=== PATIENT | male | born 1980 | race Caucasian/White ===

== ENCOUNTER 2017-05-08 07:49 | Emergency (ER) | payer SELFPAY ==
[2017-05-08] MEDS ORDERED: diPHENhydraMINE IV* 50 MG/ML 1 ml VIAL (BENADRYL) IM ONE (07:56)
[2017-05-08] MEDS ORDERED: Haloperidol INJ IV/IM* 5 MG/ML AMP IM ONE (07:57)
[2017-05-08] MEDS ORDERED: LORazepam INJ* 2 MG/ML 1 ML VIAL IM ONE (07:57)
[2017-05-08] MEDS ORDERED: diPHENhydraMINE IV* 50 MG/ML 1 ml VIAL (BENADRYL) ONE (08:14)
[2017-05-08] MEDS ORDERED: LORazepam INJ* 2 MG/ML 1 ML VIAL ONE (08:14)
[2017-05-08] MEDS ORDERED: Haloperidol INJ IV/IM* 5 MG/ML AMP ONE (08:14)
[2017-05-08 09:03] LABS: Hematocrit 40 % (42-52); Hemoglobin 13.5 g/dl (14.0-18.0); Mean Corpuscular HGB Conc 33 g/dl (31-36); Mean Corpuscular Hemoglobin 30 pg (27-31); Mean Corpuscular Volume 89 fL (80-94); Mean Platelet Volume 8 um3 (7.4-10.4); Red Blood Count 4.54 10^6/ul (4.0-5.4); Red Cell Distribution Width 14 % (10.5-15); White Blood Count 6.8 10^3/ul (3.5-10.8)
[2017-05-08 09:21] LABS: ALT 11 U/L (7-52); AST 17 U/L (13-39); Albumin 4.2 g/dL (3.2-5.2); Alkaline Phosphatase 73 U/L (34-104); Anion Gap 4 mmol/L (2-11); BUN/Creatinine Ratio 10.1 (8-20); Blood Urea Nitrogen 10 mg/dL (6-24); CO2 Carbon Dioxide 31 mmol/L (22-32); Calcium 9.3 mg/dL (8.6-10.3); Chloride 105 mmol/L (101-111); Creatine Kinase 144 U/L (10-223); EGFR Non-African American 85.5 (>60); Globulin 2.6 g/dL (2-4); Glucose 88 mg/dL (70-100); Potassium 3.6 mmol/L (3.5-5.0); Sodium 140 mmol/L (133-145); Total Protein 6.8 g/dL (6.4-8.9)
[2017-05-08 09:35] LABS: Acetaminophen < 15 mcg/mL; Alcohol < 10 mg/dL (<10); Salicylate < 2.50 mg/dL (<30)
[2017-05-08 09:51] LABS: TSH (Thyroid Stimulating Horm) 1.01 mcIU/mL (0.34-5.60)
[2017-05-08 15:46] VITALS: BP 137/88
--- NOTE | 2017-05-08 20:24 | ED ---
Maribell Ahn Gabriel, scribed for Bhavana Alfaro MD on 05/08/17 at 0806 . Substance Abuse/Use - HPI Summary HPI Summary: This patient is a 36 year old M BIBA to [facility] after the police were called for the patient being uncooperative at a gas station while eating hotdogs. He was found with packets of empty Suboxone on his person. He refuses to answer any questions including his name and birthday. Patient is taunting the staff and will not answer a helpful manor. LEVEL 5 CAVEAT: HPI limited due to the patient being uncooperative. - History Of Current Complaint Stated Complaint: SUBSTANCE USE Hx Obtained From: EMS, Medical Records PMH/Surg Hx/FS Hx/Imm Hx - Social History Alcohol Use: None Substance Use Type: Reports: Other Smoking Status (MU): Heavy Every Day Tobacco Smoker - Additional Comments History Additional Comments: LEVEL 5 CAVEAT: Medical history limited due to the patient being uncooperative. Review of Systems - ROS Summary Review of Systems Summary: LEVEL 5 CAVEAT: ROS limited due to the patient being uncooperative. Negative: Fever All Other Systems Reviewed And Are Negative: No Physical Exam - Summary Physical Exam Summary: Physical Exam Findings Appearance: appears sleepy, no pain distress, Well-nourished Skin: Warm, color reflects adequate perfusion Head: Normal Head/Face Eyes: Conjunctiva clear ENT: Normal appearance Neck: Supple Respiratory: Lungs clear, Normal breath sounds, no respiratory distress Cardio: RRR, No murmur, pulses normal, brisk capillary refill Abdomen: soft, nontender Bowel sounds: present Musculoskeletal: Strength Intact/ ROM intact Neuro: Alert, muscle tone normal, ED: facial symmetry, speech normal, sensory/ motor intact Detailed Neuro Exam: A&Ox3, CN II-XII intact, Motor function 5/5, Sensations intact Psychological: Normal LEVEL 5 CAVEAT: PE limited due to the patient being uncooperative. Triage Information Reviewed: Yes Vital Signs On Initial Exam: Initial Vitals Temp Pulse Resp BP Pulse Ox 98.2 F 79 15 115/72 97 05/08/17 07:51 05/08/17 07:51 05/08/17 07:51 05/08/17 07:51 05/08/17 07:51 Vital Signs Reviewed: Yes Completion Of Physical Exam Limited Due To: Level 5 Diagnostics - Vital Signs Vital Signs Temp Pulse Resp BP Pulse Ox 05/08/17 15:30 58 11 137/88 99 05/08/17 15:00 11 140/82 05/08/17 14:30 14 05/08/17 14:00 14 107/68 05/08/17 13:30 15 131/85 05/08/17 13:00 14 129/87 05/08/17 12:30 10 113/62 05/08/17 12:00 75 15 107/75 100 05/08/17 11:30 69 14 103/73 98 05/08/17 11:00 72 14 109/78 100 05/08/17 10:30 70 15 119/83 100 05/08/17 10:00 68 13 118/87 100 05/08/17 09:30 77 16 117/79 97 05/08/17 09:04 79 15 97 05/08/17 07:51 98.2 F 79 15 115/72 97 - Laboratory Lab Results: Lab Results 05/08/17 05/08/17 05/08/17 Range/Units 08:45 08:45 08:45 WBC 6.8 (3.5-10.8) 10^3/ul RBC 4.54 (4.0-5.4) 10^6/ul Hgb 13.5 L (14.0-18.0) g/dl Hct 40 L (42-52) % MCV 89 (80-94) fL MCH 30 (27-31) pg MCHC 33 (31-36) g/dl RDW 14 (10.5-15) % Plt Count 243 (150-450) 10^3/ul MPV 8 (7.4-10.4) um3 Neut % (Auto) 44.5 (38-83) % Lymph % (Auto) 41.9 (25-47) % [place] % (Auto) 10.4 H (1-9) % Eos % (Auto) 2.2 (0-6) % Baso % (Auto) 1.0 (0-2) % Absolute Neuts (auto) 3.0 (1.5-7.7) 10^3/ul Absolute Lymphs (auto) 2.9 (1.0-4.8) 10^3/ul Absolute Monos (auto) 0.7 (0-0.8) 10^3/ul Absolute Eos (auto) 0.1 (0-0.6) 10^3/ul Absolute Basos (auto) 0.1 (0-0.2) 10^3/ul Absolute Nucleated RBC 0.01 10^3/ul Nucleated RBC % 0.1 Sodium 140 (133-145) mmol/L Potassium 3.6 (3.5-5.0) mmol/L Chloride 105 (101-111) mmol/L Carbon Dioxide 31 (22-32) mmol/L Anion Gap 4 (2-11) mmol/L BUN 10 (6-24) mg/dL Creatinine 0.99 (0.67-1.17) mg/dL Est GFR ( Amer) 110.0 (>60) Est GFR (Non-Af Amer) 85.5 (>60) BUN/Creatinine Ratio 10.1 (8-20) Glucose 88 (70-100) mg/dL Lactic Acid 1.2 (0.5-2.0) mmol/L Calcium 9.3 (8.6-10.3) mg/dL Total Bilirubin 0.30 (0.2-1.0) mg/dL AST 17 (13-39) U/L ALT 11 (7-52) U/L Alkaline Phosphatase 73 (34-104) U/L Total Creatine Kinase 144 (10-223) U/L Total Protein 6.8 (6.4-8.9) g/dL Albumin 4.2 (3.2-5.2) g/dL Globulin 2.6 (2-4) g/dL Albumin/Globulin Ratio 1.6 (1-3) TSH 1.01 (0.34-5.60) mcIU/mL Salicylates < 2.50 (<30) mg/dL Acetaminophen < 15 mcg/mL Serum Alcohol < 10 (<10) mg/dL Result Diagrams: 05/08/17 08:45 05/08/17 08:45 Lab Statement: Any lab studies that have been ordered have been reviewed, and results considered in the medical decision making process. - EKG 0819 Cardiac Rate: NL EKG Rhythm: Sinus Rhythm - at 72 BPM EKG Interpretation: normal AV/IV CT, normal QCt, normal axis, NAC EKG Comparison: Other - no prior to compare Re-Evaluation - Re-Evaluation First Eval Re-Evaluation Time: 08:37 Change: Unchanged - Sedations meds were not given, the patient feel asleep and is cooperative for EKG. Second Eval Re-Evaluation Time: 12:14 Change: Improved - Patient is more alert answers questions but becomes argumentative and refuses to answer further questions. Course/Dx - Course Assessment/Plan: Test results with no significant abnormalities. Patient will be discharged and follow up from [facility]. The patient is agreeable with this plan. - Diagnoses Provider Diagnoses: Substance abuse Discharge - Discharge Plan Condition: Stable Disposition: HOME Patient Education Materials: Polysubstance Abuse (ED) Referrals: [facility] [Outside] No Primary Care Phys,NOPCP [Primary Care Provider] - Additional Instructions: Please try [facility] for follow up. You may also try the [facility] for follow up. Return to the ER if you have any new or worsening symptoms. The documentation as recorded by the Maribell juarez Gabriel accurately reflects the service I personally performed and the decisions made by , Bhavana Alfaro MD.
== END 2017-05-08 15:50 | disposition home or self-care (01) ==
LOC: ED 07:49
DX: F19.10 Other psychoactive substance abuse, uncomplicated (principal); F17.200 Nicotine dependence, unspecified, uncomplicated
CPT/HCPCS: 36415; 80053; 80320; 80329; 82550; 83605; 84443; 85025; 93005; 96372; 96374; 99283; G0480; J1200; J1630; J2060

== ENCOUNTER 2018-02-25 19:00 | Emergency (ER) | payer MEDICAID, OTHER ==
[2018-02-25 19:39] VITALS: BP 124/69
--- NOTE | 2018-02-25 19:54 | UC ---
Skin Complaint HPI - HPI Summary HPI Summary: Pt presents for evluation fo a lump on his throat. Pt states has been there for a "long time" pt states had it ultrasounded when was incarcerated - but doesn' tknow the result. Pt states is a pt at [facility] - has a referral for an ultrasound. Pt states he thinks it has gotten larger so wanted to get it checked. No difficulty with breathing. No difficulty with swallowing. no discomfort. No fever, chills. no cp, sob, abd pain. no n.v.d No other complaints Pt's medications reviewed this visit - History of Current Complaint Chief Complaint: UCGeneralIllness Stated Complaint: LUMP ON THROAT Hx Obtained From: Patient Onset/Duration: Gradual Onset, Lasting Weeks Pain Intensity: 4 - Allergy/Home Medications Allergies/Adverse Reactions: Allergies Allergy/AdvReac Type Severity Reaction Status Date / Time No Known Allergies Allergy Verified 02/25/18 19:39 Home Medications: Home Medications Buprenorphine/Naloxone SL TAB* [Suboxone 8-2 mg SL TAB*] 02/25/18 [History] Ibuprofen TAB* [Advil TAB*] 400 mg PO PRN 02/25/18 [History] Review of Systems Constitutional: Negative Skin: Other - neck growth All Other Systems Reviewed And Are Negative: Yes PMH/Surg Hx/FS Hx/Imm Hx Previously Healthy: Yes - Surgical History Surgical History: Yes Surgery Procedure, Year, and Place: SEPTOPLASTY, JAW REPAIR - Family History Known Family History: Positive: Other - non contributory - Social History Occupation: Employed Part-time Alcohol Use: None Substance Use Type: Marijuana Smoking Status (MU): Current Every Day Smoker Type: Cigarettes Amount Used/How Often: 1/2 PPD Physical Exam - Summary Physical Exam Summary: Vital Signs Reviewed: Yes A+Ox3, no distress Eyes: Conjunctiva Clear, JANUSZ, EOM intact and full ENT: Hearing grossly normal TM x 2 clear turbinates wnl mmmoist no exudate no intraoral edema uvula midline neck: supple pt with soft, cystic structure just left lateral midline - non tender, no red no tender c/w thyroglossal duct cyst Respiratory: Positive: No respiratory distress, No accessory muscle use Cardiovascular: skin color reflect adequate perfusion Musculoskeletal Exam: JETT x 4 without difficulty Neurological: Positive: Alert, ambulatory without difficulty Psychological: Positive: Normal Response To Family Skin: Positive: no rash, no ecchymosis Triage Information Reviewed: Yes Vital Signs: Initial Vital Signs Temp 99.1 F 02/25/18 19:31 Pulse 90 02/25/18 19:31 Resp 16 02/25/18 19:31 BP 124/69 02/25/18 19:31 Pulse Ox 99 02/25/18 19:31 Course/Dx - Course Course Of Treatment: pt presents for eval of apparent thyroglossal cyst. Pt states has had for a long time. concerned increased in size. no fever, chils. no resp or swallowing difficulty. Pt has and ultrasound referral from [facility]. Recommend keep appt. [facility] - Diagnoses Provider Diagnoses: cyst Discharge - Sign-Out/Discharge Documenting (check all that apply): Patient Departure All imaging exams completed and their final reports reviewed: No Studies - Discharge Plan Condition: Stable Disposition: HOME Patient Education Materials: Cyst (ED) Referrals: [facility] [Outside] [facility] Medical,. [[employer], APPLICATION, OTHER] - Additional Instructions: The doctor that evaluated you thinks you have a cyst. It is recommended you alternate ibuprofen (advil, Motrin) 600mg and tylenol every 3hours as needed for pain. Take with food Okay to apply warm soaks to your neck It is recommended you get the ultrasound ordered by Dr. Merida - you can call the hospital at [phone] to schedule this appointment You [facility] also [facility] - call on Tuesday for an appointment. This office can help with your testing and ongoing care treatment plan - Billing Disposition and Condition Condition: STABLE Disposition: Home
[2018-02-25] MEDS ORDERED: Ibuprofen TAB* 400 MG PO ONE (20:07)
== END 2018-02-25 20:38 | disposition home or self-care (01) ==
LOC: UCEAST 19:00
DX: Q89.2 Congenital malformations of other endocrine glands (principal); F17.210 Nicotine dependence, cigarettes, uncomplicated
CPT/HCPCS: 99211; A9270-GY; G0463

== ENCOUNTER 2018-10-17 18:34 | Emergency (ER) | payer OTHER ==
--- NOTE | 2018-10-17 19:11 | ED ---
Substance Abuse/Use - HPI Summary HPI Summary: Pt is a 37 y/o F presenting to the ED brought in by EMS and the [place] [employer] for substance abuse. The pt is alert and oriented at bedside, and states that he was trying to jump out of the way of a car that was too close to the shoulder, and the police stopped him. He also states that they manufactured probable cause to bring him in today. He denies any pain or SI/HI , and refused to answer whether or not he used any drugs. Per the [place] [employer], he was found with Suboxone, Alprazolam, and Gabapentin on him. - History Of Current Complaint Chief Complaint: EDSubstanceAbuse Stated Complaint: 9, ETOH PER POLICE Time Seen by Provider: 10/17/18 18:56 Hx Obtained From: Patient, Other: - [employer] [employer] Ingestion History: Type/Name Of Drug - gabapentin, alprazolam, suboxone, Amount Ingested - unknown, Approximate Time Of Ingestion - unknown Overdose Characteristics: Oral Timing Of Abuse: Binge Use Severity Initially: Moderate Severity Currently: Moderate Character: Lethargic Aggravating Factor(s): Nothing Alleviating Factor(s): Nothing - Allergies/Home Medications Allergies/Adverse Reactions: Allergies Allergy/AdvReac Type Severity Reaction Status Date / Time No Known Allergies Allergy Verified 02/25/18 19:39 Home Medications: Home Medications Buprenorphine HCl/Naloxone HCl [Buprenorphn-Naloxn 2-0.5 mg Sl] 1 each SL BID [History Confirmed 10/17/18] Gabapentin CAP(*) [Neurontin 400 mg CAP(*)] 800 mg PO BID 10/17/18 [History Confirmed 10/17/18] Varenicline (NF) [Chantix 1 MG TAB (NF)] 1 mg PO BID 10/17/18 [History Confirmed 10/17/18] PMH/Surg Hx/FS Hx/Imm Hx Previously Healthy: Yes Endocrine/Hematology History: Denies: Hx Diabetes Cardiovascular History: Denies: Hx Hypertension - Surgical History Surgery Procedure, Year, and Place: SEPTOPLASTY, JAW REPAIR Infectious Disease History: No Infectious Disease History: Denies: Traveled Outside the [place] in Last 30 Days - Family History Known Family History: Positive: Unknown - pt refused to answer - Social History Alcohol Use: None Alcohol Amount: pt denies Hx Substance Use: Yes Substance Use Type: Reports: Marijuana Substance Use Comment - Amount & Last Used: pt denies Hx Tobacco Use: Yes Smoking Status (MU): Current Every Day Smoker Type: Cigarettes Amount Used/How Often: 1/2 PPD Review of Systems Negative: Myalgia Negative: Anxious, Depressed All Other Systems Reviewed And Are Negative: Yes Physical Exam - Summary Physical Exam Summary: Appearance: Well appearing, no pain distress Skin: warm, dry, reflects adequate perfusion Head/face: normal Eyes: EOMI, JANUSZ ENT: normal Neck: supple, non-tender Respiratory: CTA, breath sounds present Cardiovascular: RRR, pulses symmetrical Abdomen: non-tender, soft Musculoskeletal: normal, strength/ROM intact Neuro: normal, sensory motor intact, A&Ox3 Triage Information Reviewed: Yes Vital Signs On Initial Exam: Initial Vitals Temp Pulse Resp BP Pulse Ox 99.8 F 106 16 127/82 99 10/17/18 18:39 10/17/18 18:39 10/17/18 18:39 10/17/18 18:39 10/17/18 18:39 Vital Signs Reviewed: Yes Diagnostics - Vital Signs Vital Signs Temp Pulse Resp BP Pulse Ox 10/17/18 18:39 99.8 F 106 16 127/82 99 - Laboratory Result Diagrams: 10/17/18 19:30 10/17/18 19:31 Lab Statement: Any lab studies that have been ordered have been reviewed, and results considered in the medical decision making process. - EKG 190 Cardiac Rate: NL - 97bpm EKG Rhythm: Sinus Rhythm ST Segment: Normal Ectopy: None Summary of EKG Findings: EKG at 1909 shows NSR at 97bpm with no STEMI. Course/Dx - Course Course Of Treatment: Pt is a 37 y/o F presenting to the ED brought in by EMS and the [place] [employer] for substance abuse. The pt is alert and oriented at bedside, and states that he was trying to jump out of the way of a car that was too close to the shoulder, and the police stopped him. He also states that they manufactured probable cause to bring him in today. He denies any pain or SI/HI, and refused to answer whether or not he used any drugs. Per the [place] [employer], he was found with Suboxone, Alprazolam, and Gabapentin on him. Pt's physical exam is normal, and the patient is alert & oriented x3. EKG at 1909 shows NSR at 97bpm with no STEMI. Pt will be signed out to Dr. Orellana at shift change pending sobriety. - Diagnoses Differential Diagnosis/HQI/PQRI: Positive: Drug Abuse Provider Diagnoses: Substance abuse Discharge - Sign-Out/Discharge Documenting (check all that apply): Sign-Out Patient Signing out patient TO: Doyle Orellana - Discharge Plan Condition: Stable Referrals: [facility] [Outside] - Billing Disposition and Condition Condition: STABLE - Attestation Statements Document Initiated by Scribe: Yes Documenting Scribe: Yaa Ferreira Provider For Whom Samir is Documenting (Include Credential): Boogie Ruelas MD. Scribe Attestation: Yaa Ahn scribed for Boogie Ruelas MD. on 10/17/18 at 2155. Scribe Documentation Reviewed: Yes Provider Attestation: The documentation as recorded by the Yaa juarez accurately reflects the service I personally performed and the decisions made by Boogie mcgrath MD. Status of Scribe Document: Viewed
[2018-10-17 19:49] LABS: ABS Eosinophils 0.3 10^3/ul (0-0.6); ABS Lymphocytes 1.3 10^3/ul (1.0-4.8); ABS Monocytes 0.8 10^3/ul (0-0.8); ABS Neutrophils 7.3 10^3/ul (1.5-7.7); Hematocrit 36 % (42-52); Lymphocyte % 13.6 %; Mean Corpuscular HGB Conc 33 g/dL (31-36); Mean Corpuscular Hemoglobin 30 pg (27-31); Mean Corpuscular Volume 90 fL (80-94); Mean Platelet Volume 7.5 fL (7.4-10.4); Platelet Count 236 10^3/uL (150-450); Red Cell Distribution Width 14 % (10.5-15); White Blood Count 9.8 10^3/uL (3.5-10.8)
[2018-10-17 19:57] LABS: ALT 52 U/L (7-52); AST 91 U/L (13-39); Albumin 3.8 g/dL (3.2-5.2); Albumin/Globulin Ratio 1.4 (1-3); Alkaline Phosphatase 63 U/L (34-104); Anion Gap 5 mmol/L (2-11); Blood Urea Nitrogen 5 mg/dL (6-24); CO2 Carbon Dioxide 31 mmol/L (22-32); Calcium 8.9 mg/dL (8.6-10.3); Chloride 103 mmol/L (101-111); EGFR African American 124.4 (>60); EGFR Non-African American 102.8 (>60); Globulin 2.7 g/dL (2-4); Glucose 105 mg/dL (70-100); Potassium 3.5 mmol/L (3.5-5.0); Sodium 139 mmol/L (135-145); Total Protein 6.5 g/dL (6.4-8.9)
[2018-10-17 20:05] LABS: Acetaminophen < 15 mcg/mL; Alcohol < 10 mg/dL (<10); Salicylate < 2.50 mg/dL (<30)
--- NOTE | 2018-10-17 22:24 | ED ---
Progress - Progress Note Progress Note: Receiving sign-out at [address] Ruelas pending sobriety. Patient is sober and can go home. A plan for discharge was discussed with the patient and he was agreeable with this plan. Course/Dx - Course Course Of Treatment: Receiving sign-out at [address] Ruelas pending sobriety. Patient is sober and can go home. A plan for discharge was discussed with the patient and he was agreeable with this plan. - Diagnoses Provider Diagnoses: Substance abuse Discharge - Sign-Out/Discharge Documenting (check all that apply): Patient Departure - Discharge, Receiving Sign-Out Receiving patient FROM: Boogie Ruelas - Pending sobriety. Patient Received Moderate/Deep Sedation with Procedure: No - Discharge Plan Condition: Improved Disposition: HOME Patient Education Materials: Polysubstance Abuse (ED) Referrals: [facility] [Outside] [facility] [Outside] - As Soon As Possible - Billing Disposition and Condition Condition: IMPROVED Disposition: Home - Attestation Statements Document Initiated by Samir: Yes Documenting Scribe: Jakob Acosta Provider For Whom Samir is Documenting (Include Credential): Doyle Orellana MD Scribe Attestation: Jakob Ahn, scribed for Doyle Orellana MD on 10/19/18 at 0236. Scribe Documentation Reviewed: Yes Provider Attestation: The documentation as recorded by the Jakob juarez accurately reflects the service I personally performed and the decisions made by me, Doyle Orellana MD Status of Scribe Document: Viewed
[2018-10-18 10:53] VITALS: BP 93/64
== END 2018-10-18 10:53 | disposition home or self-care (01) ==
LOC: ED 18:34
DX: F19.10 Other psychoactive substance abuse, uncomplicated (principal); F17.210 Nicotine dependence, cigarettes, uncomplicated
CPT/HCPCS: 36415; 80053; 80320; 80329; 83605; 84484; 85025; 93005; 99283; G0480